=== PATIENT | male | born 1935 | race Caucasian/White ===

== ENCOUNTER 2016-10-12 09:49 | Emergency (ER) | payer OTHER ==
[~2016-10-12] VITALS: Wt 71.2 kg
--- NOTE | 2016-10-12 10:51 | ERD ---
ER Documentation Chief Complaint Date/Time DATE: 10/12/16 TIME: 10:48 Chief Complaint LEFT INDEX FINGER LACERATION FROM A KNIFE. BLEEDING CONTROLLED HPI 81-year-old male with history of high blood pressure presents to the emergency department following a laceration to his left index finger today while cutting some fruits. Patient stated he began bleeding instantly but he has been able to control the bleeding since. Patient denies any pain at this time and reports full sensation in range of motion of his hand and fingers. Patient denies any other injury to his hand wrist or eyes. Patient denies history of diabetes. ROS All systems reviewed and are negative except as per history of present illness. Medications Home Meds Active Scripts Bacitracin* (Bacitracin Oint (UD)*) 1 Applic Oint, 1 APPLIC TOP ONCE for 7 Days , PKT APPLY TO Prov:POPEYE CALI PA-C 10/12/16 PMhx/Soc Medical and Surgical Hx: pt denies Medical Hx, pt denies Surgical Hx Hx Alcohol Use: No Smoking Status: Never smoker Physical Exam Vitals Vital Signs Date Time Temp Pulse Resp B/P Pulse Ox O2 Delivery O2 Flow Rate FiO2 10/12/16 09:51 98.5 65 20 150/69 99 Physical Exam Const: Well-developed, well-nourished, no acute distress Head: Atraumatic Resp: Clear to auscultation bilaterally Cardio: Regular rate and rhythm, no murmurs Abd: Soft, non tender, non distended. Normal bowel sounds Skin: 1 cm by 0.5 cm superficial skin avulsion located on the radial aspect of the distal left index finger. No active bleeding or discharge. No evidence of foreign body. Median, radial, ulnar nerve motor and sensory function intact. 2 point discrimination along radial and ulnar aspects of first and second digit. Brisk capillary refill. No petechiae or rashes Ext: No cyanosis, or edema Neur: Awake and alert Psych: Normal Mood and Affect Results 24 hrs Current Medications Medications (Trade) Dose Ordered Sig/Jo Ann Route PRN Reason Start Time Stop Time Status Last Admin Dose Admin Acetaminophen (Tylenol Tab) 650 mg ONCE ONCE PO 10/12/16 11:00 10/12/16 11:01 DC 10/12/16 10:58 Diphtheria/ Tetanus/Acell Pertussis (Adacel) 0.5 ml ONCE ONCE IM* 10/12/16 11:00 10/12/16 11:01 DC 10/12/16 10:59 Procedures/MDM Skin avulsion repair: Anesthesia: none Irrigation: NS Location: Left index finger skin avulsion. Unable to approximate edges of skin Tendon/Joint/Nerves: No injury Foreign body: None detected after copious irrigation and exploration Technique: Mupirocin topical ointment and simple dressing Complexity: No subcutaneous sutures/mucosal repair/ edge excision Length: 1 cm Patient's bleeding was easily controlled in the department and there is no indication of anemia. No evidence of compartment syndrome, neurologic injury, vascular injury, open joint, tendon laceration, or foreign body. Patient is appropriate for outpatient follow up. 48 hour wound check. Scar minimization instructions given. Patient denies history of diabetes and is in relatively well health. Patient denies any pain at this time. Patient given tetanus booster while in the ED today. Patient to continue application of topical antibiotic ointment for 1 week. Based on patient's history of present illness and physical examination the decision was made to discharge. The patient was re-evaluated after ED treatment and stabilizing measures, and symptoms have improved. There is no evidence of life threatening injuries or illnesses at this time. On re-examination, patient resting in no distress, stable vital signs, reports feeling better and safe for discharge with outpatient follow up with PMD in 1-2 days. Patient given return precautions. Departure Diagnosis: Primary Impression: Laceration Additional Impression: Skin avulsion POPEYE CALI PA-C Oct 12, 2016 10:51
[2016-10-12] MEDS ORDERED: ACETAMINOPHEN 325 MG TAB PO ONE (11:00)
[2016-10-12] MEDS ORDERED: DIPHTH/TET/ACEL PERTUSS (ADULT) 0.5 ML VIAL IM* ONE (11:00)
[2016-10-12] MEDS ORDERED: BACITUD TOP (11:23)
== END 2016-10-12 11:43 | disposition home or self-care (01) ==
LOC: FTE 09:49
DX: S61.211A Laceration without foreign body of left index finger without damage to nail, initial encounter (principal); S61.201A Unspecified open wound of left index finger without damage to nail, initial encounter; W26.0XXA Contact with knife, initial encounter; Y92.9 Unspecified place or not applicable; Z23 Encounter for immunization
CPT/HCPCS: 90715; Z7610; 90471